=== PATIENT | female | born 1995 | race Caucasian/White ===

== ENCOUNTER 2020-12-09 00:40 | Inpatient (IN) | payer OTHER, SELFPAY ==
[2020-12-09] VITALS (103 sets, daily range): BP systolic 93–136; BP diastolic 55–95; PULSE 58–178; RESP 13–20; TEMP 36.8–37.4; O2SAT 95–100; BMI 25.6
--- NOTE | 2020-12-09 00:40 | LDADM ---
This patient, Arpita Cooper, was admitted to Labor/Delivery/Recovery 103 on 12/09/20 at 00:40. Plans for labor, pain management and were discussed with patient. Patient/family oriented to hospital policies and general routines including ID bracelet, bed and alarms, visiting hours, pain management, procedures, bathroom and other care routines, personal items, smoking policy, room service/diet and guest tray routines, security routines, and visiting hours. Patient/Family are encouraged to report perceived risks to care and to ask questions if they do not understand what they are told or what they should do. See OBIX for further documentation.
[2020-12-09] MEDS: LACTATED RINGERS 1,000 ML 125 ML IV CONT ×2 (02:39→03:01)
[2020-12-09 02:45] LABS: Basophils Percent Auto 0.3 % (0.2-1.2); Eosinophils Absolute Auto 0.1 K/mm3 (0-0.3); Eosinophils Percent Auto 0.8 % (0-4.4); Hematocrit 38.7 % (37.0-47.0); Hemoglobin 12.8 g/dL (12.0-15.0); Immature Granulocyte Absolute 0.04 K/mm3 (0.00-0.031); Immature Granulocyte Percent A 0.4 % (0-0.5); Lymphocytes Absolute Auto 1.95 K/mm3 (0.9-3.2); Lymphocytes Percent Auto 17.3 % (18.3-44.2); Mean Corpuscular HGB Conc 33.1 g/dl (32-36); Mean Corpuscular Hemoglobin 28.3 pg (26-34); Mean Corpuscular Volume 85.4 fl (80-100); Mean Platelet Volume 11.7 fl (7.4-10.4); Monocytes Absolute Auto 0.7 K/mm3 (0.1-0.6); Monocytes Percent Auto 6.5 % (2.6-8.5); Neutrophils Absolute Auto 8.4 K/mm3 (1.3-6.7); Neutrophils Percent Auto 74.7 % (45.5-73.1); Platelet Count Result 216 k/mm3 (150-375); Red Blood Count 4.53 M/mm3 (4.2-5.4); Red Cell Distribution Width 12.9 % (11.5-14.5); White Blood Count 11.3 K/mm3 (4.5-10.0)
[2020-12-09] MEDS: OXYTOCIN 30 UNITS/NS 500 ML 30 UNITS/500 ML BAG 999 UNITS IV CONT (04:41)
--- NOTE | 2020-12-09 04:45 | WPDOBADMIT ---
Obstetrics - Admit Note Admission Note: record reviewed. Additions to the history and/or subsequent changes in the physical findings follow. 25 y/o at 38 5/7 weeks here with contractions. Labor diagnosed. Now comfortable with epidural, but feeling pressure. GBS neg. AVSS NST reactive TOCO: contractions every 2-3 min ABD soft, nontender, gravid, vertex EXT nontender Cervix C/+2 A: IUP at 38 5/7 weeks with labor. P: Anticipate .
--- NOTE | 2020-12-09 04:46 | P.PCNOB_ITS ---
OB - Delivery Note Procedure Delivery date: 12/09/20 Procedure: Intrapartal events: None Induction method: none Delivery monitor: external FHT and external uterine Route of delivery: Laceration Description: Perineal - 1st Degree Delivery repair: vicryl (3-0) Specimen: Yes (cord blood) Quantitative Blood Loss (ml): 145 Anesthesia type: Epidural Disposition: PACU Complications: None Narrative: 25 y/o at 38 5/7 weeks gestation who presented to the hospital with contractions. Labor was diagnosed. She received an epidural for pain control. She had SROM with clear fluid. Her labor progressed and her cervix dilated completely. She pushed with good effort and delivered the 's head to the perineum, followed by the body. The nose and mouth were bulb suctioned. After a delay, the cord was clamped and cut. The infant was handed off the field. Cord blood was collected. The placenta delivered spontaneously and was grossly normal in appearance. The usual 3 vessel cord was noted. A first degree perineal laceration was sustained. This was reapproximated using one figure of eight suture of 3 0 Vicryl. Excellent hemos tasis resulted as did excellent reapproximation of the normal anatomy. Needle and instrument counts were correct. The patient was taken to recovery room in stable condition. The infant went to the nursery in stable condition. I was present and scrubbed for the entire delivery. Baby Date of : 12/09/20 Time of : 04:48 Weeks of gestation at delivery: 38 gender: Male Weight (pounds): 8 Weight (ounces): 4 presentation: vertex position: Left Occiput Anterior Placenta delivery description: Spontaneous and Normal Configuration cord vessel description: 3 Vessels and Delayed Cord Clamping score one minute: 9 score five minutes: 9
--- NOTE | 2020-12-09 04:49 | P.DS_ITS ---
DS: Admitting Diagnosis Admitting Diagnosis Admitting Diagnosis: IUP at 38 5/7 weeks Labor DS: Discharge Diagnosis Discharge Diagnosis (1) (normal spontaneous vaginal delivery): Code(s): O80 - Encounter for full-term uncomplicated delivery Status: Acute OB - DS: Summary OB Procedures : None OB Procedures Intrapartum: Spontaneous Vag Delivery OB Procedures: : None DS: Data Data Completed and Pending Labs on day of discharge: Labs from last 24 hours 12/09/20 12/09/20 12/09/20 02:39 02:39 02:38 WBC 11.3 H RBC 4.53 Hgb 12.8 Hct 38.7 MCV 85.4 MCH 28.3 MCHC 33.1 RDW 12.9 Plt Count 216 MPV 11.7 H Immature Gran % (Auto) 0.4 Neut % (Auto) 74.7 H Lymph % (Auto) 17.3 L [place] % (Auto) 6.5 Eos % (Auto) 0.8 Baso % (Auto) 0.3 Lymph # (Auto) 1.95 [place] # (Auto) 0.7 H Eos # (Auto) 0.1 Baso # (Auto) 0.0 Abs Immat Gran (auto) 0.04 H Absolute Neuts (auto) 8.4 H Absolute Nucleated RBC 0.0 Nucleated RBC % 0.0 RPR Pending Blood Type A Positive Antibody Screen Negative Discharge Plan Discharge Attending physician on discharge: Lux Quesada Discharging Clinician: Lux Quesada Patient Disposition: Home, Self-Care Activity: pelvic rest Diet: regular Discharge Instructions: Call or return if temperature above 100.4? F, increased abdominal pain, increased vaginal bleeding or any new problems. Stand Alone Forms: General Discharge Information Follow-up/Referrals: Lux Quesada MD [Physician] - 6 Weeks Discharge Medications: New ibuprofen 600 mg tablet 600 mg PO Q6H PRN (Reason: cramps) Qty: 30 RF: 0 ferrous sulfate [Iron (ferrous sulfate)] 325 mg (65 mg iron) tablet 325 mg PO DAILY Qty: 30 RF: 0 No Action #2 Tablet 1 tablet PO DAILY RF: 0 Date of admission: 12/09/20 00:40 Primary Care Provider: Nara Hernández Admitting Provider: Lux Quesada Attending physician on admission: Lux Quesada Condition: Stable
[2020-12-09] MEDS: OXYTOCIN 30 UNITS/NS 500 ML 30 UNITS/500 ML BAG 125 UNITS IV CONT (05:13)
[2020-12-09] MEDS: WITCH HAZEL 40 PADS 1 PAD TOPICAL (08:05)
[2020-12-09] MEDS: BENZOCAINE 20% AER SPR (*SP) 56 GM CAN 1 SPRAY TOPICAL (08:05)
[2020-12-09] MEDS: MULTIVIT/MIN/PREN/FOL AC/IRON TABLET 1 TAB PO (08:08)
[2020-12-09] MEDS: IBUPROFEN 600 MG TABLET PO ×2 (08:08→18:16)
[2020-12-09 12:56] LABS: Rapid Plasma Reagin Non-Reactive (NonReactive)
--- NOTE | 2020-12-09 14:10 | PC.NURSE ---
Consult with pt., mother reports is eagerly latching. Mother used a nipple shield with first child and has issues with heavy let down and oversupply. Mother reports she is able to latch infant without difficulties or discomfort. Reviewed infant feeding cues, frequencies, duration of feedings, feeding elimination flow sheet, and signs of adequate intake. Requested mother call out for assist as needed. Reviewed latch assist to help with drawing out nipple if needed. Discussed to pump before latching when her milk comes in to assist infant with deep latch. Nipple care reviewed of lanolin after feedings, warm compresses as needed. Instructed mother to call out for RN assistance if she is unable to latch infant for feeding or she has discomfort with nursing. Instructed feeding should be initiated three hours from start of last feeding or if feeding cues are noted before. Mother voiced understanding of information shared.
[2020-12-10 00:10] VITALS: BP 109/71; PULSE 70; RESP 14; TEMP 36.9; O2SAT 97
[2020-12-10 04:20] VITALS: BP 107/72; PULSE 71; RESP 12; TEMP 36.5; O2SAT 96
[2020-12-10 06:04] LABS: Hematocrit 27.8 % (37.0-47.0); Hemoglobin 9.3 g/dL (12.0-15.0)
[2020-12-10 08:00] VITALS: BP 115/73; PULSE 68; RESP 18; TEMP 36.4; O2SAT 99
[2020-12-10] MEDS: IBUPROFEN 600 MG TABLET PO (08:06)
[2020-12-10] MEDS: POLYSACCHARIDE IRON COMPLEX 150 MG CAPSULE PO (08:07)
[2020-12-10] MEDS: MULTIVIT/MIN/PREN/FOL AC/IRON TABLET 1 TAB PO (08:07)
[2020-12-10] MEDS: DOCUSATE SODIUM 100 MG CAPSULE PO (08:07)
--- NOTE | 2020-12-10 10:14 | PM.OBPNVD ---
OB - PN: Subj Subjective Date/time seen: 12/10/20 10:14 Narrative: Pain OK. Would like circumcision for son. Would like to go home. OB - PN: Obj Data Labs CBC & Chem 7: 12/10/20 04:25 Labs: Laboratory Results - last 24 hr 12/09/20 12/10/20 02:39 04:25 Hgb 9.3 L D Hct 27.8 L RPR Non-reactive OB - PN A/P Plan Comments: A: PPD#1, doing well. P: Reviewed circ. Home to f/u 6 weeks. Exam Psych: Other: AVSS ABD soft, nontender, fundus firm EXT nontender
--- NOTE | 2020-12-10 11:33 | WPDANLDPN2 ---
Anes-Prog Note L&D Date/Time: 12/10/20 11:33 Comfortable throughout: labor and delivery Neuraxial method: epidural Epidural/Spinal procedure site: clean & non-tender Neuro status: Neuro function grossly intact. Cardiovascular status: normal Respiratory status: normal Airway patency: baseline Mental status: baseline Post-Op hydration status: normal Vital Signs: Last Vital Signs Temp 36.4 C L 12/10/20 08:00 Pulse 68 12/10/20 08:00 Resp 18 12/10/20 08:00 BP 115/73 12/10/20 08:00 Pulse Ox 99 12/10/20 08:00 Pain score (VAS): 0 I/O: Intake & Output 12/09/20 12/10/20 12/10/20 23:59 07:59 15:59 Intake Total 480 Balance 480 Post-procedural complaints: none Patient feedback: Patient satisfied with anesthetic care.
[2020-12-13 10:53] VITALS: BP 119/76; PULSE 77; RESP 16; TEMP 37.3; O2SAT 99
== END 2020-12-10 13:35 | disposition home or self-care (01) | DRG 807 ==
LOC: ANHLDR 04:50 → ANHOBPP 09:44 → ANHOB2 21:14
PROVIDERS: Admitting Provider Obstetrics & Gynecology; PCP Internal Medicine; Visit Provider Obstetrics & Gynecology
DX: O70.0 First degree perineal laceration during delivery (principal); Z37.0 Single live birth; Z3A.38 38 weeks gestation of pregnancy
CPT/HCPCS: 36415; 85014; 85018; 85025; 86592; 86850; 86900; 86901; A9270; J2590; J2795; J7120